=== PATIENT | female | born 1985 | race Caucasian/White ===

== ENCOUNTER 2018-04-21 05:04 | Emergency (ER) | payer SELFPAY ==
[2018-04-21] MEDS ORDERED: ONDANSETRON 4 MG/2 ML VIAL ONE (05:32)
[2018-04-21 06:09] LABS: Absolute Monocytes 2.1 K/uL (0.1-1.3); Absolute Neutrophil 27.5 K/uL (1.8-8.0); Basophils % 0.4 % (0-1.3); Eosinophils % 0.7 % (0-4.4); Hematocrit 52.8 % (36.0-45.0); Lymphocytes % 11.8 % (15.3-44.8); MCV 90.1 fL (80-100); MPV 10.2 fL (7.6-11.3); Monocytes % 6.1 % (3.3-12.3); RBC Red Blood Cell Count 5.85 M/uL (3.86-4.86)
[2018-04-21 06:25] LABS: ALT/SGPT 25 U/L (12-78); AST/SGOT 22 U/L (15-37); Albumin 4.5 g/dL (3.4-5.0); Alkaline Phosphatase 95 U/L (45-117); BUN Blood Urea Nitrogen 13 mg/dL (7-18); Bicarbonate 19 mmol/L (21-32); Bilirubin Direct < 0.1 mg/dL (0-0.2); Bilirubin Total 0.4 mg/dL (0.2-1.0); Glucose Level 153 mg/dL (74-106); Lipase 123 U/L (73-393); Potassium 3.4 mmol/L (3.5-5.1); Protein, Total 8.5 g/dL (6.4-8.2); Sodium Level 139 mmol/L (136-145)
[2018-04-21] MEDS ORDERED: PROMETHAZINE 25 MG/ML VIAL ONE (06:30)
[2018-04-21] MEDS ORDERED: PANTOPRAZOLE 40 MG INJ ONE (06:31)
[2018-04-21] MEDS ORDERED: NA CHLORIDE 0.9% 1,000 ML ONE ×2 (06:31→09:09)
[2018-04-21 06:59] LABS: Blood Morphology Comment NOT SEEN (NOT SEEN); Platelet Estimate ADEQ
[2018-04-21 08:14] LABS: Urine Blood TRACE (NEG); Urine Glucose NEGATIVE (NEG); Urine Protein 1+ (NEG); Urine pH 5.5 (5.0-7.0)
[2018-04-21 08:14] LABS: Urine Amorphous Sediment 1+ /HPF (NONE SEEN); Urine Bacteria 20-50 /HPF (<20); Urine Culture Reflex Order REFLEXED; Urine Mucus HEAVY /HPF (NONE SEEN); Urine RBC NONE SEEN /HPF (NONE SEEN)
[2018-04-21 08:15] LABS: Calcium Oxalate Crystals- Ur FEW (NONE SEEN)
--- NOTE | 2018-04-21 08:24 | RAD REPORT ---
EXAM DESCRIPTION: CTAbdomen Pelvis W Contrast - 04/21/2018 7:27 am CLINICAL HISTORY: Abdominal pain. iv only;Abd pain COMPARISON: No comparisons TECHNIQUE: Biphasic CT imaging of the abdomen and pelvis was performed with 100 ml non-ionic IV cont rast. All CT scans are performed using dose optimization technique as appropriate and may include automated exposure control or mA/KV adjustment according to patient size. FINDINGS: The lung bases are clear. The liver, spleen, pancreas, adrenal glands and left kidney are within normal limits. Punctate nonobs tructing right renal calculus. No bowel obstruction, free air, free fluid or abscess. Fluid-filled colon and small bowel loops noted which could indicate a mild enteritis/colitis. Appendectomy. No evidence of significant lymphadenop athy. No suspicious bony findings. IMPRESSION: A mild enteritis/ colitis pattern is suspected.
[2018-04-21 08:43] LABS: Barbiturates NEGATIVE (NEGATIVE); Benzodiazepines NEGATIVE (NEGATIVE); Cocaine NEGATIVE (NEGATIVE); METHAMPHETAM NEGATIVE (NEGATIVE); Methadone NEGATIVE (NEGATIVE); Opiates NEGATIVE (NEGATIVE); Phencyclidine NEGATIVE (NEGATIVE); THC Cannibis POSITIVE (NEGATIVE)
[2018-04-21] MEDS ORDERED: CIPROFLOXACIN 400mg IV 400 MG/200 ML BAG IV ONE (09:09)
[2018-04-21] MEDS ORDERED: METRONIDAZOLE 500mg IVPB 500 MG/100 ML BAG IV ONE (09:09)
[2018-04-21 10:57] LABS: Hematocrit 42.9 % (36.0-45.0); MCH 31.6 pg (27.0-35.0); MCV 90.5 fL (80-100); MPV 9.1 fL (7.6-11.3); RBC Red Blood Cell Count 4.74 M/uL (3.86-4.86)
--- NOTE | 2018-04-21 11:08 | EDPHYS ---
Physician Documentation [facility] Name: Dalila Jackson Age: 33 yrs Sex: Female : 1985 Arrival Date: 04/21/2018 Time: 05:06 Bed 6 Private MD: ED Physician David Acosta HPI: 04/21 06:42 This 33 yrs old Female presents to ER via Ambulatory with complaints of jr8 Breathing Difficulty, Vomiting. 06:42 The patient presents to the emergency department with nausea, vomiting, diarrhea. jr8 Onset: The symptoms/episode began/occurred acutely, this morning. Possible causes: unknown. The symptoms are aggravated by nothing. The symptoms are alleviated by nothing. Associated signs and symptoms: Pertinent positives: abdominal pain. Severity of symptoms: At their worst the symptoms were moderate in the emergency department the symptoms have improved. The patient has not experienced similar symptoms in the past. The patient has not recently seen a physician. Patient stated that she went to bed fine. Woke up this morning with sudden onset of n/v/d and abdominal cramping . 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 - Social history:: Smoking status: Patient uses tobacco products, smokes one-half pack cigarettes per day, Patient/guardian denies using alcohol, street drugs. - Ebola Screening: : Patient negative for fever greater than or equal to 101.5 degrees Fahrenheit, and additional compatible Ebola Virus Disease symptoms Patient denies exposure to infectious person Patient denies travel to an Ebola-affected area in the 21 days before illness onset. ROS: 06:42 Eyes: Negative for injury, pain, redness, and discharge, ENT: Negative for injury, jr8 pain, and discharge, Neck: Negative for injury, pain, and swelling, Cardiovascular: Negative for chest pain, palpitations, and edema, Respiratory: Negative for shortness of breath, cough, wheezing, and pleuritic chest pain, Back: Negative for injury and pain, MS/Extremity: Negative for injury and deformity, Skin: Negative for injury, rash, and discoloration, Neuro: Negative for headache, weakness, numbness, tingling, and seizure. 06:42 Abdomen/GI: Positive for abdominal pain, nausea, vomiting, and diarrhea, abdominal cramps. Exam: 06:42 Eyes: Pupils equal round and reactive to light, extra-ocular motions intact. Lids and jr8 lashes normal. Conjunctiva and sclera are non-icteric and not injected. Cornea within normal limits. Periorbital areas with no swelling, redness, or edema. ENT: Nares patent. No nasal discharge, no septal abnormalities noted. Tympanic membranes are normal and external auditory canals are clear. Oropharynx with no redness, swelling, or masses, exudates, or evidence of obstruction, uvula midline. Mucous membranes moist. Neck: Trachea midline, no thyromegaly or masses palpated, and no cervical lymphadenopathy. Supple, full range of motion without nuchal rigidity, or vertebral point tenderness. No Meningismus. Cardiovascular: Regular rate and rhythm with a normal S1 and S2. No gallops, murmurs, or rubs. Normal PMI, no JVD. No pulse deficits. Respiratory: Lungs have equal breath sounds bilaterally, clear to auscultation and percussion. No rales, rhonchi or wheezes noted. No increased work of breathing, no retractions or nasal flaring. Abdomen/GI: Soft, non-tender, with normal bowel sounds. No distension or tympany. No guarding or rebound. No evidence of tenderness throughout. Back: No spinal tenderness. No costovertebral tenderness. Full range of motion. Skin: Warm, dry with normal turgor. Normal color with no rashes, no lesions, and no evidence of cellulitis. MS/ Extremity: Pulses equal, no cyanosis. Neurovascular intact. Full, normal range of motion. Neuro: Awake and alert, GCS 15, oriented to person, place, time, and situation. Cranial nerves II-XII grossly intact. Motor strength 5/5 in all extremities. Sensory grossly intact. Cerebellar exam normal. Normal gait. Vital Signs: 05:21 BP 118 / 101; Pulse 88; Resp 24; Temp 97.5; Pulse Ox 95% on R/A; Weight 70.31 kg; ao Height 5 ft. 5 in. (165.10 cm); Pain 6/10; 06:00 BP 125 / 90; Pulse 90; Resp 18; Pulse Ox 99% on 2 lpm NC; rr5 06:41 BP 112 / 80; Pulse 80; Resp 18; Pulse Ox 98% on R/A; ea 07:58 BP 124 / 92; Pulse 77; Resp 18 S; Pulse Ox 98% on 2 lpm NC; Pain 0/10; jl7 09:00 BP 114 / 80; Pulse 78; Resp 16; Pulse Ox 99% ; bp 10:00 BP 105 / 67; Pulse 75; Resp 16; Pulse Ox 98% ; bp 11:36 BP 107 / 69; Pulse 81; Resp 16; Pulse Ox 98% ; bp 05:21 Body Mass Index 25.79 (70.31 kg, 165.10 cm) ao MDM: 05:18 Patient medically screened. tw4 : Data reviewed: vital signs, nurses notes, lab test result(s), radiologic studies, CT jr8 scan, and as a result, I will discharge patient. Data interpreted: Pulse oximetry: on room air is 98 %. Interpretation: normal. 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 Response to treatment: the patient's symptoms have markedly improved after treatment, patient is well hydrated. ED course: Patient with benign feeling abdomen. Has been reassessed multiple times without acute finding. WBC markedly decreased after fluids administered. Patient without any vomiting at this time and wants to go home. Will treat with antibiotics and to f/u with GI and PCP. To come back if worse. Patient is good with this plan . 04/21 05:23 Order name: Basic Metabolic Panel tw4 04/21 05:23 Order name: CBC with Diff tw4 04/21 05:23 Order name: Creatinine for Radiology; Complete Time: 06:35 tw4 04/21 05:23 Order name: Hepatic Function; Complete Time: 06:35 tw4 04/21 05:23 Order name: Lipase; Complete Time: 06:35 tw4 04/21 05:23 Order name: Urine Drug Screen; Complete Time: 08:58 tw4 04/21 05:23 Order name: Urine Microscopic Only; Complete Time: 08:27 tw4 04/21 05:23 Order name: Basic Metabolic Panel; Complete Time: 06:35 EDMS 04/21 05:23 Order name: CBC with Automated Diff; Complete Time: 07:22 EDMS 04/21 06:17 Order name: Manual Differential; Complete Time: 07:22 EDMS 04/21 07:34 Order name: Urine Dipstick--Ancillary (enter results); Complete Time: 08:27 eb 04/21 07:34 Order name: Urine --Ancillary (enter results); Complete Time: 08:27 eb 04/21 08:19 Order name: Urine Culture [facility] 04/21 10:15 Order name: CBC w/o diff; Complete Time: 11:05 jr8 04/21 05:23 Order name: IV Saline Lock; Complete Time: 05:30 tw4 04/21 05:23 Order name: Labs collected and sent; Complete Time: 05:37 tw4 04/21 05:23 Order name: Urine Test (obtain specimen); Complete Time: 07:20 tw4 04/21 05:23 Order name: Urine Dipstick-Ancillary (obtain specimen); Complete Time: 07:20 tw4 04/21 06:17 Order name: CT Abd/Pelvis - W/Contrast; Complete Time: 08:27 jr8 Administered Medications: 05:30 Drug: Zofran 4 mg Route: IVP; Site: right antecubital; ea 07:02 Follow up: Response: No adverse reaction rr5 06:25 Drug: Promethazine 12.5 mg Route: IVP; Site: right antecubital; rr5 07:02 Follow up: Response: No adverse reaction rr5 06:30 Drug: ProTONIX 40 mg Route: IVP; Site: right antecubital; rr5 07:01 Follow up: Response: No adverse reaction rr5 06:31 Drug: NS 0.9% 1000 ml Route: IV; Rate: 1000 ml; Site: right antecubital; rr5 08:30 Follow up: IV Status: Completed infusion; IV Intake: 1000ml bp 09:00 Drug: Flagyl 500 mg Volume: 100 ml; Route: IVPB; Rate: 200 ml/hr; Infused Over: 30 bp mins; Site: right antecubital; 09:30 Follow up: IV Status: Completed infusion; IV Intake: 100ml bp 09:00 Drug: NS 0.9% 1000 ml Route: IV; Rate: 1000 ml; Site: right antecubital; bp 11:37 Follow up: IV Status: Completed infusion; IV Intake: 1000ml bp 09:30 Drug: Ciprofloxacin 400 mg Volume: 200 ml; Route: IVPB; Infused Over: 60 mins; Site: bp right antecubital; 10:30 Follow up: IV Status: Completed infusion; IV Intake: 200ml bp Disposition: 04/21/18 11:07 Discharged to Home. Impression: Abdominal and pelvic pain, Nausea and vomiting, Enteritis/Colitis. - Condition is Stable. - Discharge Instructions: Abdominal Pain, Adult, Nausea and Vomiting, Adult. - Prescriptions for Flagyl 500 mg Oral Tablet - take 1 tablet by ORAL route every 6 hours for 10 days; 40 tablet. Cipro 500 mg Oral Tablet - take 1 tablet by ORAL route every 12 hours for 10 days; 20 tablet. promethazine 25 mg Oral Tablet - take 1 tablet by ORAL route every 6 hours As needed; 20 tablet. - Medication Reconciliation Form, Thank You Letter, Antibiotic Education, Prescription Opioid Use form. - Follow up: Private Physician; When: 5 - 6 days; Reason: Recheck today's complaints, Continuance of care, Re-evaluation by your physician. - Problem is new. - Symptoms have improved. Signatures: Dispatcher [employer] EDMS Robert Bergman PA PA jr8 Joe Perez RN RN ao Antunez, Elena RN Remberto Pittman ea, RN RN bp Wadley, Terrence, MD MD tw4 Jonh Strange, HOMA RN rr5 Corrections: (The following items were deleted from the chart) 11:42 11:07 04/21/2018 11:07 Discharged to Home. Impression: Abdominal and pelvic pain; bp Nausea and vomiting; Enteritis/Colitis. Condition is Stable. Forms are Medication Reconciliation Form, Thank You Letter, Antibiotic Education, Prescription Opioid Use. Follow up: Private Physician; When: 5 - 6 days; Reason: Recheck today's complaints, Continuance of care, Re-evaluation by your physician. Problem is new. Symptoms have improved. jr8
--- NOTE | 2018-04-21 11:08 | ER ---
Nurse's Notes [facility] Name: Adrianna Jackson Age: 33 yrs Sex: Female : 1985 Arrival Date: 04/21/2018 Time: 05:06 Bed 6 Private MD: Diagnosis: Abdominal and pelvic pain;Nausea and vomiting;Enteritis/Colitis Presentation: 04/21 05:16 Presenting complaint: Patient states: Vomiting and diarrhea x 3 hours. Patient also ao complains of abdominal pain and SOB starting the same time. Transition of care: patient was not received from another setting of care. Onset of symptoms was April 21, 2018 at 02:00. Risk Assessment: Do you want to hurt yourself or someone else? Patient reports no desire to harm self or others. Initial Sepsis Screen: Does the patient meet any 2 criteria? RR > 20 per min. No. Patient's initial sepsis screen is negative. Does the patient have a suspected source of infection? No. Patient's initial sepsis screen is negative. Care prior to arrival: None. 05:16 Method Of Arrival: Ambulatory ao 05:16 Acuity: XAVIER 3 ao Triage Assessment: 08:30 Respiratory: Reports shortness of breath Onset: The symptoms/episode began/occurred bp this morning, 08:30 General: Appears in no apparent distress. comfortable, Behavior is calm, cooperative, bp appropriate for age. 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 - Social history:: Smoking status: Patient uses tobacco products, smokes one-half pack cigarettes per day, Patient/guardian denies using alcohol, street drugs. - Ebola Screening: : Patient negative for fever greater than or equal to 101.5 degrees Fahrenheit, and additional compatible Ebola Virus Disease symptoms Patient denies exposure to infectious person Patient denies travel to an Ebola-affected area in the 21 days before illness onset. Screenin:23 Abuse screen: Denies threats or abuse. Denies injuries from another. Nutritional ao screening: No deficits noted. Tuberculosis screening: No symptoms or risk factors identified. Fall Risk None identified. Assessment: 05:24 Respiratory: Airway. ao 05:35 General: Appears uncomfortable, Behavior is calm, cooperative, appropriate for age. ea Pain: Complains of pain in right upper quadrant, left upper quadrant, right lower quadrant and left lower quadrant Pain currently is 9 out of 10 on a pain scale. Neuro: Level of Consciousness is awake, alert, obeys commands, Oriented to person, place, time, situation. Cardiovascular: Heart tones S1 S2 present Patient's skin is warm and dry. Respiratory: Airway is patent Respiratory effort is even, unlabored, Breath sounds are clear bilaterally. GI: Abdomen is non-distended, Bowel sounds present X 4 quads. Abd is soft X 4 quads Abdomen is tender to palpation X 4 quads. Derm: Skin is pink, warm \T\ dry. 06:39 Reassessment: Patient and/or family updated on plan of care and expected duration. Pain ea level reassessed. Patient is alert, oriented x 3, equal unlabored respirations, skin warm/dry/pink. 06:50 Reassessment: unable to give urine sample for the test. rr5 06:50 Cardiovascular: Rhythm is regular. rr5 07:59 General: Appears in no apparent distress. uncomfortable, Behavior is calm, cooperative, jl7 appropriate for age. Pain: Denies pain. Neuro: Level of Consciousness is awake, alert, obeys commands, Oriented to person, place, time, situation. Cardiovascular: Heart tones S1 S2 present Patient's skin is warm and dry. Respiratory: Airway is patent Respiratory effort is even, unlabored, Respiratory pattern is regular, symmetrical, Breath sounds are clear bilaterally. GI: Patient currently denies nausea. Derm: Skin is pink, warm \T\ dry. 08:30 Reassessment: RECD REPORT FROM MEGHAN LUTHER. 33YO WF P/W N/V/D x3 HR. ALL CURRENT STUDIES bp COMPLETED. CBC TO BE REPEATED AFTER ABX AND IVF. VS STABLE ON MONITOR. 09:48 Reassessment: ABX AND IVF INFUSING, VS REMAIN STABLE. bp 11:35 Reassessment: PT D/C HOME AMBULATORY WITH FAMILY, DX WITH ENTERITIS. bp Vital Signs: 05:21 BP 118 / 101; Pulse 88; Resp 24; Temp 97.5; Pulse Ox 95% on R/A; Weight 70.31 kg; ao Height 5 ft. 5 in. (165.10 cm); Pain 6/10; 06:00 BP 125 / 90; Pulse 90; Resp 18; Pulse Ox 99% on 2 lpm NC; rr5 06:41 BP 112 / 80; Pulse 80; Resp 18; Pulse Ox 98% on R/A; ea 07:58 BP 124 / 92; Pulse 77; Resp 18 S; Pulse Ox 98% on 2 lpm NC; Pain 0/10; jl7 09:00 BP 114 / 80; Pulse 78; Resp 16; Pulse Ox 99% ; bp 10:00 BP 105 / 67; Pulse 75; Resp 16; Pulse Ox 98% ; bp 11:36 BP 107 / 69; Pulse 81; Resp 16; Pulse Ox 98% ; bp 05:21 Body Mass Index 25.79 (70.31 kg, 165.10 cm) ao ED Course: 05:06 Patient arrived in ED. es 05:18 David Loaiza MD is Attending Physician. tw4 05:19 Triage completed. ao 05:20 Inserted saline lock: 20 gauge in right antecubital area, using aseptic technique. ea Blood collected. 05:22 Arm band placed on right wrist. Patient placed in an exam room, on a stretcher, on ao oxygen, on pulse oximetry, Patient notified of wait time. 05:24 Patient has correct armband on for positive identification. Pulse ox on. NIBP on. ao 05:35 Jaclyn Birch RN is Primary Nurse. ea 06:09 Robert Bergman PA is PHCP. jr8 06:09 David Loaiza MD is Attending Physician. jr8 06:17 Notified Nurse Practitioner and/or Physician Adoption Social Worker of a critical lab result(s), bb WBCs 34.0 Robert FORD notified. 07:10 Report given to marissa LUTHER. rr5 07:26 CT completed. Patient tolerated procedure well. Patient moved to CT via wheelchair. nj Patient moved back from CT. 07:27 CT Abd/Pelvis - W/Contrast In Process Unspecified. EDMS 07:30 Urine collected: clean catch specimen, adrianna colored. jl7 07:58 Primary Nurse role handed off by Jaclyn Birch RN jl7 07:58 Lu, Jahala, RN is Primary Nurse. jl7 08:53 Primary Nurse role handed off by Meghan Lu, HOMA bp 08:53 Remberto Brady, HOMA is Primary Nurse. bp 11:35 No provider procedures requiring assistance completed. IV discontinued, intact, bp bleeding controlled, No redness/swelling at site. Pressure dressing applied. Administered Medications: 05:30 Drug: Zofran 4 mg Route: IVP; Site: right antecubital; ea 07:02 Follow up: Response: No adverse reaction rr5 06:25 Drug: Promethazine 12.5 mg Route: IVP; Site: right antecubital; rr5 07:02 Follow up: Response: No adverse reaction rr5 06:30 Drug: ProTONIX 40 mg Route: IVP; Site: right antecubital; rr5 07:01 Follow up: Response: No adverse reaction rr5 06:31 Drug: NS 0.9% 1000 ml Route: IV; Rate: 1000 ml; Site: right antecubital; rr5 08:30 Follow up: IV Status: Completed infusion; IV Intake: 1000ml bp 09:00 Drug: Flagyl 500 mg Volume: 100 ml; Route: IVPB; Rate: 200 ml/hr; Infused Over: 30 bp mins; Site: right antecubital; 09:30 Follow up: IV Status: Completed infusion; IV Intake: 100ml bp 09:00 Drug: NS 0.9% 1000 ml Route: IV; Rate: 1000 ml; Site: right antecubital; bp 11:37 Follow up: IV Status: Completed infusion; IV Intake: 1000ml bp 09:30 Drug: Ciprofloxacin 400 mg Volume: 200 ml; Route: IVPB; Infused Over: 60 mins; Site: bp right antecubital; 10:30 Follow up: IV Status: Completed infusion; IV Intake: 200ml bp Intake: 08:30 IV: 1000ml; Total: 1000ml. bp 09:30 IV: 100ml; Total: 1100ml. bp 10:30 IV: 200ml; Total: 1300ml. bp 11:37 IV: 1000ml; Total: 2300ml. bp 05:32 bright red in color stool, patient claimed.dr. loaiza aware rr5 06:20 vomitted with blood Robert FORD informed with order and carried out rr5 Output: 05:32 Stool: 1 (Loose Stool) ; Total: 0ml. rr5 06:20 Gastric: 1ml (Emesis); Total: 1ml. rr5 05:32 bright red in color stool, patient claimed.dr. loaiza aware rr5 06:20 vomitted with blood Robert FORD informed with order and carried out rr5 Outcome: 11:07 Discharge ordered by . oli 11:36 Discharged to home ambulatory, with family. bp 11:36 Condition: stable 11:36 Discharge instructions given to patient, Instructed on discharge instructions, follow up and referral plans. medication usage, Demonstrated understanding of instructions, follow-up care, medications, Prescriptions given X 3. 11:42 Patient left the ED. bp Signatures: Dispatcher [employer] EDMS Elisabet Kellogg Brenda, RN RN Robert Valladares PA PA jr8 Joe Perez, RN RN Mike Bashir Jahala RN RN jl7 Jaclyn Birch RN Remberto Pittman ea RN RN David Vela MD MD tw4 Jonh Strange RN RN rr5 Corrections: (The following items were deleted from the chart) 05:32 05:29 Reassessment: rr5 rr5
== END 2018-04-21 11:42 | disposition home or self-care (01) ==
LOC: ER 05:04
DX: K52.9 Noninfective gastroenteritis and colitis, unspecified (principal); R10.2 Pelvic and perineal pain; F17.210 Nicotine dependence, cigarettes, uncomplicated; F32.9 Major depressive disorder, single episode, unspecified; Z88.0 Allergy status to penicillin
CPT/HCPCS: 36415; 74177; 80048; 80076; 80307; 81003; 81015; 81025; 83690; 85025; 85027; 87086; 87088; 96361; 96365; 96367; 96375; 99285; C9113; J0744; J2405; J2550; J7030; Q9967

== ENCOUNTER 2018-05-04 05:34 | Emergency (ER) | payer SELFPAY ==
[2018-05-04] MEDS ORDERED: NA CHLORIDE 0.9% 1,000 ML ONE (06:27)
[2018-05-04] MEDS ORDERED: KETOROLAC 30 MG/ML INJ ONE (06:27)
[2018-05-04 06:49] LABS: Absolute Lymphocytes (CBC) 2.3 K/uL (0.7-4.9); Absolute Monocytes 1.1 K/uL (0.1-1.3); Absolute Neutrophil 12.3 K/uL (1.8-8.0); Basophils % 0.3 % (0-1.3); Eosinophils % 1.4 % (0-4.4); Hematocrit 43.1 % (36.0-45.0); Lymphocytes % 14.4 % (15.3-44.8); MCH 31.2 pg (27.0-35.0); MPV 9.4 fL (7.6-11.3); Monocytes % 6.6 % (3.3-12.3); RBC Red Blood Cell Count 4.69 M/uL (3.86-4.86)
[2018-05-04 07:08] LABS: Urine Blood 1+ (NEG); Urine Glucose NEGATIVE (NEG); Urine Protein NEGATIVE (NEG); Urine Specific Gravity >1.030 (1.005-1.030); Urine pH 5.5 (5.0-7.0)
[2018-05-04 07:16] LABS: ALT/SGPT 22 U/L (12-78); AST/SGOT 10 U/L (15-37); Albumin 3.3 g/dL (3.4-5.0); Alkaline Phosphatase 70 U/L (45-117); BUN Blood Urea Nitrogen 12 mg/dL (7-18); Bicarbonate 22 mmol/L (21-32); Bilirubin Direct < 0.1 mg/dL (0-0.2); Bilirubin Total 0.3 mg/dL (0.2-1.0); Glucose Level 118 mg/dL (74-106); Lipase 107 U/L (73-393); Potassium 3.4 mmol/L (3.5-5.1); Protein, Total 6.2 g/dL (6.4-8.2); Sodium Level 141 mmol/L (136-145)
[2018-05-04 07:49] LABS: Blood Morphology Comment NOT SEEN (NOT SEEN); Platelet Estimate ADEQ; Urine White Blood Cell Casts OK
--- NOTE | 2018-05-04 08:03 | RAD REPORT ---
EXAM DESCRIPTION: CT - Abdomen Pelvis W Contrast - 05/04/2018 7:44 am CLINICAL HISTORY: Abdominal pain CT April 21 COMPARISON: None. TECHNIQUE: Biphasic, helical CT imaging of the abdomen and pelvis was performed following 100 ml non -ionic IV contrast. No oral contrast administered. All CT scans are performed using dose optimization technique as appropriate and may include automated exposure control or mA/KV adjustment according to patient size. FINDINGS: No suspicious findings in the lung bases. The liver, spleen, and pancreas show no suspicious findings. Gallbladder is tightly contracted. Galls tones can be occult on CT imaging. Contracted state of the gallbladder accentuates wall thickness. No biliary tree dilatation. Symmetric renal function is seen with no hydronephrosis or suspicious renal mass. There is slight het erogeneity of the parenchymal enhancement pattern. Pyelonephritis would not be suspected without supp orting clinical or laboratory findings. No urinary bladder wall thickening or focal abnormality. No a drenal abnormality. Uterus and ovaries show no suspicious findings. No gastric dilatation or wall thickening. Proximal small bowel loops are mildly prominent. Distal sma ll bowel loops are unremarkable. No acute colon process. No appendicitis findings. A few small mesent miryam lymph nodes are present. No free air, free fluid or inflammatory stranding. No hernia, mass or bulky lymphadenopathy. No suspicious bony findings. IMPRESSION: Mild prominence of the proximal small bowel loops. A few small mesenteric lymph nodes ar e present. Patient may have a mild enteritis. Findings are less pronounced than seen on the April 21 study. Slight heterogeneity of the renal parenchymal enhancement pattern is unlikely to be pyelonephritis. N o acute or MATHEMATICIAN RESEARCH process seen.
--- NOTE | 2018-05-04 08:19 | ER ---
Nurse's Notes [facility] Name: Dalila Jackson Age: 33 yrs Sex: Female : 1985 Arrival Date: 05/04/2018 Time: 05:37 Bed 5 Private MD: Diagnosis: Generalized abdominal pain Presentation: 05/04 05:35 Presenting complaint: Patient states: that she is having severe abd pain, nausea and fc diarrhea. Was here on Thanksgiving with colitis. Transition of care: patient was not received from another setting of care. Onset of symptoms was May 04, 2018 at 04:00. Risk Assessment: Do you want to hurt yourself or someone else? Patient reports no desire to harm self or others. Initial Sepsis Screen: Does the patient meet any 2 criteria? No. Patient's initial sepsis screen is negative. Does the patient have a suspected source of infection? No. Patient's initial sepsis screen is negative. Care prior to arrival: None. 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 - Social history:: Smoking status: Patient uses tobacco products, smokes one-half pack cigarettes per day, Patient uses alcohol, occasionally. Patient/guardian denies using street drugs. - Ebola Screening: : Patient negative for fever greater than or equal to 101.5 degrees Fahrenheit, and additional compatible Ebola Virus Disease symptoms Patient denies exposure to infectious person Patient denies travel to an Ebola-affected area in the 21 days before illness onset. Screenin:51 Abuse screen: Denies threats or abuse. Nutritional screening: No deficits noted. fc Tuberculosis screening: No symptoms or risk factors identified. Fall Risk None identified. Assessment: 06:27 General: Appears uncomfortable, Behavior is cooperative, anxious. Pain: Complains of bb pain in abdomen Pain currently is 10 out of 10 on a pain scale. Neuro: Level of Consciousness is awake, alert, obeys commands, Oriented to person, place, time, situation. Cardiovascular: Heart tones S1 S2 present Capillary refill < 3 seconds Patient's skin is warm and dry. Pulses are all present. Edema is absent. Respiratory: Respiratory effort is unlabored, Respiratory pattern is hyperventilation Breath sounds are clear bilaterally. GI: Bowel sounds hyperactive in right upper quadrant, left upper quadrant, right lower quadrant and left lower quadrant Abd is soft X 4 quads Abdomen is tender to palpation in right upper quadrant Reports diarrhea, nausea, vomiting. : No signs and/or symptoms were reported regarding the genitourinary system. Derm: Skin is pink, warm \T\ dry. Musculoskeletal: Circulation, motion, and sensation intact. 06:57 Reassessment: Patient and/or family updated on plan of care and expected duration. Pain bb level reassessed. Patient is alert, oriented x 3, equal unlabored respirations, skin warm/dry/pink. pain has improved now 4/10 Patient states feeling better. 07:13 Reassessment: Patient appears in no apparent distress at this time. Patient and/or hb family updated on plan of care and expected duration. Pain level reassessed. Patient is alert, oriented x 3, equal unlabored respirations, skin warm/dry/pink. Vital Signs: 05:35 BP 135 / 78; Pulse 62; Resp 18; Temp 97.5(O); Pulse Ox 100% on R/A; Weight 72.57 kg fc (R); Height 5 ft. 5 in. (165.10 cm) (R); Pain 10/10; 06:58 BP 97 / 56; Pulse 88; Resp 16 S; Pulse Ox 99% on R/A; Pain 4/10; bb 05:35 Body Mass Index 26.63 (72.57 kg, 165.10 cm) fc 06:58 pt lying on right side with blood pressure cuff on left arm bb ED Course: 05:35 Arm band placed on Patient placed in an exam room, on a stretcher. fc 05:37 Patient arrived in ED. es 05:50 Triage completed. fc 05:51 Patient has correct armband on for positive identification. Placed in gown. Bed in low fc position. Call light in reach. 05:51 No provider procedures requiring assistance completed. fc 05:53 Anna Felix FNP-C is PHCP. kb 05:53 Elmer Bacon MD is Attending Physician. kb 06:15 Initial lab(s) drawn, by me, sent to lab. Inserted saline lock: 20 gauge in right bb antecubital area, using aseptic technique. Blood collected. 07:13 Lexus Villarreal, RN is Primary Nurse. hb 07:43 CT completed. Patient tolerated procedure well. Patient moved to CT via wheelchair. Patient moved back from CT. 07:44 CT Abd/Pelvis - W/Contrast In Process Unspecified. EDMS 08:45 IV discontinued, intact, bleeding controlled, No redness/swelling at site. Pressure hb dressing applied. Administered Medications: 06:26 Drug: NS 0.9% 1000 ml Route: IV; Rate: 1000 ml; Site: right antecubital; bb 06:26 Drug: TORadol 30 mg Route: IVP; Site: right antecubital; bb 06:58 Follow up: Response: Pain is decreased bb Outcome: 08:17 Discharge ordered by MD. kb 08:45 Discharged to home ambulatory. hb 08:45 Condition: stable 08:45 Discharge instructions given to patient, Instructed on discharge instructions, follow up and referral plans. medication usage, Demonstrated understanding of instructions, follow-up care, medications, Prescriptions given X 2. 08:47 Patient left the ED. hb Signatures: Dispatcher [employer] EDAnna Ibarra, PREET CLOUD SOFTWARE ENGINEER-Elisabet Oliver Susan sj Chretien, Felicia, RN RN fc Ballard, Brenda, RN RN bb Baxter, Heather, RN RN hb
--- NOTE | 2018-05-04 08:19 | EDPHYS ---
Physician Documentation [facility] Name: Dalila Jackson Age: 33 yrs Sex: Female : 1985 Arrival Date: 05/04/2018 Time: 05:37 Bed 5 Private MD: ED Physician Elmer Bacon HPI: 05/04 05:57 This 33 yrs old Female presents to ER via Wheelchair with complaints of kb Abdominal Pain. 05:57 The patient presents with abdominal pain that is diffuse. Onset: The symptoms/episode kb began/occurred this morning, at 03:30. The symptoms do not radiate. Associated signs and symptoms: Pertinent positives: diarrhea, Pertinent negatives: nausea and vomiting, anorexia. The symptoms are described as constant. Modifying factors: The symptoms are alleviated by nothing, the symptoms are aggravated by pressure. Severity of pain: At its worst the pain was moderate in the emergency department the pain is unchanged. The patient has not experienced similar symptoms in the past, but family has similar symptoms, significant other. The patient has been recently seen at the [facility] Emergency Department, a couple of weeks ago. Pt reports abdominal pain and diarrhea that started at 0330. Significant other reports he had abd pain yesterday as well. Denies fever, nausea and vomiting. . 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 - Social history:: Smoking status: Patient uses tobacco products, smokes one-half pack cigarettes per day, Patient uses alcohol, occasionally. Patient/guardian denies using street drugs. - Ebola Screening: : Patient negative for fever greater than or equal to 101.5 degrees Fahrenheit, and additional compatible Ebola Virus Disease symptoms Patient denies exposure to infectious person Patient denies travel to an Ebola-affected area in the 21 days before illness onset. ROS: 06:02 Constitutional: Negative for fever, chills, and weight loss, Cardiovascular: Negative kb for chest pain, palpitations, and edema, Respiratory: Negative for shortness of breath, cough, wheezing, and pleuritic chest pain, Back: Negative for injury and pain, : Negative for injury, bleeding, discharge, and swelling, MS/Extremity: Negative for injury and deformity, Skin: Negative for injury, rash, and discoloration, Neuro: Negative for headache, weakness, numbness, tingling, and seizure. 06:02 Abdomen/GI: Positive for abdominal pain, diarrhea, Negative for nausea and vomiting, constipation, abdominal cramps, abdominal distension, anorexia. Exam: 06:02 Constitutional: This is a well developed, well nourished patient who is awake, alert, kb and in no acute distress. Head/Face: Normocephalic, atraumatic. Chest/axilla: Normal chest wall appearance and motion. Nontender with no deformity. No lesions are appreciated. Cardiovascular: Regular rate and rhythm with a normal S1 and S2. No gallops, murmurs, or rubs. Normal PMI, no JVD. No pulse deficits. Respiratory: Lungs have equal breath sounds bilaterally, clear to auscultation and percussion. No rales, rhonchi or wheezes noted. No increased work of breathing, no retractions or nasal flaring. Back: No spinal tenderness. No costovertebral tenderness. Full range of motion. Skin: Warm, dry with normal turgor. Normal color with no rashes, no lesions, and no evidence of cellulitis. MS/ Extremity: Pulses equal, no cyanosis. Neurovascular intact. Full, normal range of motion. Neuro: Awake and alert, GCS 15, oriented to person, place, time, and situation. Cranial nerves II-XII grossly intact. Motor strength 5/5 in all extremities. Sensory grossly intact. Cerebellar exam normal. Normal gait. 06:02 Abdomen/GI: Inspection: abdomen appears normal, Bowel sounds: normal, in all quadrants, Palpation: soft, in all quadrants, mild abdominal tenderness, in all quadrants, moderate abdominal tenderness. Vital Signs: 05:35 BP 135 / 78; Pulse 62; Resp 18; Temp 97.5(O); Pulse Ox 100% on R/A; Weight 72.57 kg fc (R); Height 5 ft. 5 in. (165.10 cm) (R); Pain 10/10; 06:58 BP 97 / 56; Pulse 88; Resp 16 S; Pulse Ox 99% on R/A; Pain 4/10; bb 05:35 Body Mass Index 26.63 (72.57 kg, 165.10 cm) fc 06:58 pt lying on right side with blood pressure cuff on left arm bb MDM: 05:53 Patient medically screened. kb 06:02 Data reviewed: vital signs, nurses notes. Data interpreted: Pulse oximetry: on room air kb is 100 %. Interpretation: normal. 08:17 Counseling: I had a detailed discussion with the patient and/or guardian regarding: the kb historical points, exam findings, and any diagnostic results supporting the discharge/admit diagnosis, lab results, radiology results, the need for outpatient follow up, a family practitioner, a test worker, to return to the emergency department if symptoms worsen or persist or if there are any questions or concerns that arise at home. 05/04 05:48 Order name: Urine Dipstick--Ancillary (enter results); Complete Time: 07:10 ms 05/04 05:48 Order name: Urine --Ancillary (enter results); Complete Time: 07:10 ms 05/04 05:57 Order name: Basic Metabolic Panel; Complete Time: 07:22 kb 05/04 05:57 Order name: CBC with Diff; Complete Time: 07:49 kb 05/04 05:57 Order name: Hepatic Function; Complete Time: 07:22 kb 05/04 05:57 Order name: Lipase; Complete Time: 07:22 kb 05/04 05:57 Order name: IV Saline Lock; Complete Time: 06:27 kb 05/04 05:57 Order name: Labs collected and sent; Complete Time: 06:27 kb 05/04 07:11 Order name: CT Abd/Pelvis - W/Contrast; Complete Time: 08:09 kb 05/04 07:49 Order name: CBC Smear Scan; Complete Time: 07:49 EDMS Administered Medications: 06:26 Drug: NS 0.9% 1000 ml Route: IV; Rate: 1000 ml; Site: right antecubital; bb 06:26 Drug: TORadol 30 mg Route: IVP; Site: right antecubital; bb 06:58 Follow up: Response: Pain is decreased bb Disposition: 05/04/18 08:17 Discharged to Home. Impression: Generalized abdominal pain. - Condition is Stable. - Discharge Instructions: Abdominal Pain, Adult, [id number]. - Prescriptions for Bentyl 20 mg Oral Tablet - take 1 tablet by ORAL route every 6 hours As needed; 20 tablet. Zofran 4 mg Oral Tablet - take 1 tablet by ORAL route every 6 hours As needed; 20 tablet. - Medication Reconciliation Form, Thank You Letter, Antibiotic Education, Prescription Opioid Use, SBAR form, Work release form form. - Follow up: Emergency Department; When: As needed; Reason: Worsening of condition. Follow up: Private Physician; When: 2 - 3 days; Reason: Recheck today's complaints, Continuance of care, Re-evaluation by your physician. Signatures: Dispatcher [employer] EDMS Anna Felix, ITZ-C SOFTWARE SALES EXECUTIVE-Carlita Melvin RN RN Antonella Campuzano RN RN Lexus Solomon RN RN Corrections: (The following items were deleted from the chart) 08:47 08:17 05/04/2018 08:17 Discharged to Home. Impression: Generalized abdominal pain. hb Condition is Stable. Forms are SBAR form, Medication Reconciliation Form, Thank You Letter, Antibiotic Education, Prescription Opioid Use. Follow up: Emergency Department; When: As needed; Reason: Worsening of condition. Follow up: Private Physician; When: 2 - 3 days; Reason: Recheck today's complaints, Continuance of care, Re-evaluation by your physician. kb
== END 2018-05-04 08:47 | disposition home or self-care (01) ==
LOC: ER 05:34
DX: R10.84 Generalized abdominal pain (principal); R19.7 Diarrhea, unspecified; F17.210 Nicotine dependence, cigarettes, uncomplicated; F32.9 Major depressive disorder, single episode, unspecified; Z88.0 Allergy status to penicillin
CPT/HCPCS: 36415; 74177; 80048; 80076; 81003; 81025; 83690; 85025; J7030; Q9967

== ENCOUNTER 2019-05-08 09:35 | Emergency (ER) | payer SELFPAY ==
[2019-05-08] MEDS ORDERED: MEPERIDINE HCL 25 MG/0.5 ML ONE (10:28)
[2019-05-08] MEDS ORDERED: NA CHLORIDE 0.9% 1,000 ML ONE ×2 (10:28→12:42)
[2019-05-08] MEDS ORDERED: ONDANSETRON 4 MG/2 ML VIAL ONE (10:28)
[2019-05-08 10:35] LABS: Absolute Lymphocytes (CBC) 1.3 K/uL (0.7-4.9); Basophils % 0.5 % (0-1.3); Hematocrit 50.6 % (36.0-45.0); Lymphocytes % 6.2 % (15.3-44.8); MPV 9.4 fL (7.6-11.3); RBC Red Blood Cell Count 5.59 M/uL (3.86-4.86)
[2019-05-08 10:52] LABS: Albumin 4.3 g/dL (3.4-5.0); Bilirubin Direct 0.1 mg/dL (0-0.2); Bilirubin Total 0.5 mg/dL (0.2-1.0); Protein, Total 7.8 g/dL (6.4-8.2)
[2019-05-08 11:36] LABS: Urine Bacteria <20 /HPF (<20); Urine Culture Reflex Order REFLEXED; Urine RBC NONE SEEN /HPF (NONE SEEN)
--- NOTE | 2019-05-08 11:48 | RAD REPORT ---
EXAM DESCRIPTION: CTAbdomen Pelvis W Contrast - 05/08/2019 11:36 am CLINICAL HISTORY: Abdominal pain. ABD PAIN COMPARISON: Abdomen Pelvis W Contrast dated 05/04/2018; Abdomen Pelvis W Contrast dated 8 TECHNIQUE: Biphasic CT imaging of the abdomen and pelvis was performed with 100 ml non-ionic IV cont rast. All CT scans are performed using dose optimization technique as appropriate and may include automated exposure control or mA/KV adjustment according to patient size. FINDINGS: The lung bases are clear. The liver, spleen, pancreas, adrenal glands and kidneys are within normal limits. No bowel obstruction, free air, free fluid or abscess. The appendix is normal. No evidence of signi ficant lymphadenopathy. No suspicious bony findings. IMPRESSION: No acute intra-abdominal or pelvic finding.
[2019-05-08] MEDS ORDERED: Levofloxacin500mg IV 500 MG/100 ML BAG IV ONE (12:42)
[2019-05-08] MEDS ORDERED: METRONIDAZOLE 500mg IVPB 500 MG/100 ML BAG IV ONE (12:43)
[2019-05-08 12:48] LABS: Blood Morphology Comment NOT SEEN (NOT SEEN); Platelet Estimate ADEQ
--- NOTE | 2019-05-08 13:17 | ER ---
Nurse's Notes [facility] Name: Dalila Jackson Age: 34 yrs Sex: Female : 1985 Arrival Date: 05/08/2019 Time: 09:37 Bed 7 Private MD: Diagnosis: Diarrhea, unspecified;Dehydration;Generalized abdominal pain Presentation: 05/08 10:09 Presenting complaint: N/V/D with blood streaks and abdominal cramping x 2 hrs. hb Transition of care: patient was not received from another setting of care. Onset of symptoms was May 08, 2019. Risk Assessment: Do you want to hurt yourself or someone else? Patient reports no desire to harm self or others. Care prior to arrival: None. 10:09 Method Of Arrival: Ambulatory hb 10:09 Acuity: XAVIER 3 hb 10:15 Initial Sepsis Screen: Does the patient meet any 2 criteria? No. Patient's initial hb sepsis screen is negative. Does the patient have a suspected source of infection? No. Patient's initial sepsis screen is negative. Triage Assessment: 10:15 General: Appears in no apparent distress. uncomfortable, ill, Behavior is cooperative, hb crying. Pain: Pain currently is 7 out of 10 on a pain scale. EENT: No signs and/or symptoms were reported regarding the EENT system. Neuro: Level of Consciousness is awake, alert, obeys commands, Oriented to person, place, time, situation. Cardiovascular: Capillary refill < 3 seconds Patient's skin is warm and dry. Respiratory: Airway is patent Respiratory effort is even, unlabored, Respiratory pattern is regular, symmetrical, Breath sounds are clear bilaterally. GI: Abdomen is non-distended, Bowel sounds present X 4 quads. Abd is soft Abdomen is tender to palpation LUQ Reports cramping, diarrhea, nausea, vomiting. : No signs and/or symptoms were reported regarding the genitourinary system. Derm: Skin is pink, warm \T\ dry. Musculoskeletal: No signs and/or symptoms reported regarding the musculoskeletal system. Historical: - Allergies: 10:32 PENICILLINS; hb - Home Meds: 10:32 control pill [Active]; Seroquel Oral [Active]; Paxil Oral [Active]; hb - PMHx: 10:32 Depression; insomnia; hb - PSHx: 10:32 Appendectomy; hb - Immunization history:: Adult Immunizations up to date. - Social history:: Smoking status: Patient uses tobacco products, smokes one-half pack cigarettes per day. - Ebola Screening: : No symptoms or risks identified at this time. - Family history:: not pertinent. - Hospitalizations: : No recent hospitalization is reported. Screenin:16 Abuse screen: Denies threats or abuse. Denies injuries from another. Nutritional hb screening: No deficits noted. Tuberculosis screening: No symptoms or risk factors identified. Fall Risk None identified. Assessment: 10:16 General: see triage assessment. hb 11:10 Reassessment: Patient appears in no apparent distress at this time. Patient and/or hb family updated on plan of care and expected duration. Pain level reassessed. Patient is alert, oriented x 3, equal unlabored respirations, skin warm/dry/pink. 12:00 Reassessment: Patient appears in no apparent distress at this time. Patient and/or hb family updated on plan of care and expected duration. Pain level reassessed. Patient is alert, oriented x 3, equal unlabored respirations, skin warm/dry/pink. 13:01 Reassessment: Patient appears in no apparent distress at this time. Patient and/or hb family updated on plan of care and expected duration. Pain level reassessed. Patient is alert, oriented x 3, equal unlabored respirations, skin warm/dry/pink. 13:24 Reassessment: Discharge pending completion of IV ABX. hb Vital Signs: 10:08 BP 143 / 83; Pulse 88; Resp 16; Temp 97.8; Pulse Ox 97% on R/A; Pain 7/10; hb 11:00 BP 136 / 86; Pulse 88; Resp 15; Pulse Ox 100% on R/A; hb 12:15 BP 132 / 82; Pulse 84; Resp 16; Pulse Ox 100% on R/A; hb 13:00 BP 130 / 80; Pulse 80; Resp 14; Pulse Ox 99% on R/A; hb 14:00 BP 134 / 84; Pulse 82; Resp 15; Pulse Ox 100% on R/A; hb ED Course: 09:37 Patient arrived in ED. as 10:01 Felix Causey MD is Attending Physician. rn 10:08 Lexus Villarreal RN is Primary Nurse. hb 10:09 Triage completed. hb 10:09 Arm band placed on. hb 10:15 Radiology exam delayed due to lab results not completed at this time. (BUN/Creatinine) test not completed at this time. 10:16 Patient has correct armband on for positive identification. Placed in gown. Bed in low hb position. Call light in reach. Side rails up X 1. 10:26 Initial lab(s) drawn, by me, sent to lab. Urine collected: clean catch specimen, clear. ms Inserted saline lock: 20 gauge in right antecubital area, using aseptic technique. Blood collected. 11:36 CT completed. Patient tolerated procedure well. Patient moved to CT via wheelchair. sw Patient moved back from CT. 11:37 CT Abd/Pelvis - IV Contrast Only In Process Unspecified. EDMS 13:16 Elmer Li MD is Referral Physician. rn 14:15 No provider procedures requiring assistance completed. IV discontinued, intact, hb bleeding controlled, No redness/swelling at site. Pressure dressing applied. Administered Medications: 10:32 Drug: Demerol 25 mg Route: IVP; Site: right antecubital; hb 11:30 Follow up: Response: No adverse reaction; Pain is decreased hb 10:33 Drug: NS 0.9% 1000 ml Route: IV; Rate: 1000 ml; Site: right antecubital; hb 11:30 Follow up: Response: No adverse reaction; IV Status: Completed infusion; IV Intake: hb 1000ml 10:33 Drug: Zofran 4 mg Route: IVP; Site: right antecubital; hb 11:15 Follow up: Response: No adverse reaction hb 12:59 Drug: NS 0.9% 1000 ml Route: IV; Rate: 1000 ml; Site: right antecubital; hb 14:16 Follow up: Response: No adverse reaction; IV Status: Completed infusion; IV Intake: hb 1000ml 12:59 Drug: LevaQUIN 500 mg Volume: 100 ml; Route: IVPB; Infused Over: 60 mins; Site: right hb antecubital; 14:16 Follow up: Response: No adverse reaction; IV Status: Completed infusion; IV Intake: hb 100ml 12:59 Drug: Flagyl 500 mg Volume: 100 ml; Route: IVPB; Rate: 200 ml/hr; Infused Over: 30 hb mins; Site: right antecubital; 13:45 Follow up: Response: No adverse reaction; IV Status: Completed infusion; IV Intake: hb 100ml Intake: 11:30 IV: 1000ml; Total: 1000ml. hb 13:45 IV: 100ml; Total: 1100ml. hb 14:16 IV: 100ml; Total: 1200ml. hb 14:16 IV: 1000ml; Total: 2200ml. hb Outcome: 13:16 Discharge ordered by . rn 14:18 Discharged to home ambulatory. hb 14:18 Condition: stable 14:18 Discharge instructions given to patient, Instructed on discharge instructions, follow up and referral plans. medication usage, Demonstrated understanding of instructions, follow-up care, medications, Prescriptions given X 4. 14:19 Patient left the ED. hb Signatures: Dispatcher [employer] Latasha Hale Maria ms Nieto, Roman, MD MD rn Warren, Shannon sw Baxter, Heather, RN RN hb
--- NOTE | 2019-05-08 13:18 | EDPHYS ---
Physician Documentation [facility] Name: Dalila Jackson Age: 34 yrs Sex: Female : 1985 Arrival Date: 05/08/2019 Time: 09:37 Bed 7 Private MD: ED Physician Felix Causey HPI: 05/08 12:41 This 34 yrs old Female presents to ER via Ambulatory with complaints of rn Vomiting, Abdominal Cramping. 12:41 The patient presents to the emergency department with nausea, vomiting, diarrhea, rn abdominal pain. 12:41 Onset: The symptoms/episode began/occurred this morning. Possible causes: unknown. The rn symptoms are aggravated by nothing. The symptoms are alleviated by nothing. Severity of symptoms: At their worst the symptoms were moderate in the emergency department the symptoms are unchanged. The patient has experienced similar episodes in the past. Reports similar presentation in past, no known IBD, + small amount of blood in diarrhea, + vomiting, no fever, no famhx of IBD. + diffuse abd cramping that is getting worse. No hematemesis.. Historical: - Allergies: 10:32 PENICILLINS; hb - Home Meds: 10:32 control pill [Active]; Seroquel Oral [Active]; Paxil Oral [Active]; hb - PMHx: 10:32 Depression; insomnia; hb - PSHx: 10:32 Appendectomy; hb - Immunization history:: Adult Immunizations up to date. - Social history:: Smoking status: Patient uses tobacco products, smokes one-half pack cigarettes per day. - Ebola Screening: : No symptoms or risks identified at this time. - Family history:: not pertinent. - Hospitalizations: : No recent hospitalization is reported. ROS: 12:41 Constitutional: Negative for fever, chills, and weight loss, Eyes: Negative for injury, rn pain, redness, and discharge, Neck: Negative for injury, pain, and swelling, Cardiovascular: Negative for chest pain, palpitations, and edema, Respiratory: Negative for shortness of breath, cough, wheezing, and pleuritic chest pain, Abdomen/GI: + abd pain with nausea/vomiting/diarrhea MS/Extremity: Negative for injury and deformity, Skin: Negative for injury, rash, and discoloration, Neuro: Negative for headache, weakness, numbness, tingling, and seizure. Exam: 12:41 Constitutional: This is a well developed, well nourished patient who is awake, alert, rn appears uncomfortable, sitting upright Eyes: Pupils equal round and reactive to light, extra-ocular motions intact. Lids and lashes normal. Conjunctiva and sclera are non-icteric and not injected. Cornea within normal limits. Periorbital areas with no swelling, redness, or edema. ENT: dry MM Cardiovascular: Regular rate and rhythm. No pulse deficits. Respiratory: No increased work of breathing, no retractions or nasal flaring. Abdomen/GI: soft, + tender in all 4 quadrants MS/ Extremity: Pulses equal, no cyanosis. Neurovascular intact. Full, normal range of motion. Equal circumference. Neuro: Awake and alert, GCS 15, oriented to person, place, time, and situation. Vital Signs: 10:08 BP 143 / 83; Pulse 88; Resp 16; Temp 97.8; Pulse Ox 97% on R/A; Pain 7/10; hb 11:00 BP 136 / 86; Pulse 88; Resp 15; Pulse Ox 100% on R/A; hb 12:15 BP 132 / 82; Pulse 84; Resp 16; Pulse Ox 100% on R/A; hb 13:00 BP 130 / 80; Pulse 80; Resp 14; Pulse Ox 99% on R/A; hb 14:00 BP 134 / 84; Pulse 82; Resp 15; Pulse Ox 100% on R/A; hb MDM: 10:01 Patient medically screened. rn 13:14 Differential diagnosis: Nonspecific abd pain, appendicitis, diverticulitis, viral rn gastroenteritis, gastroenteritis, colitis, enteritis. Data reviewed: vital signs, nurses notes, lab test result(s), radiologic studies, CT scan, and as a result, I will discharge patient. Counseling: I had a detailed discussion with the patient and/or guardian regarding: the historical points, exam findings, and any diagnostic results supporting the discharge/admit diagnosis, lab results, radiology results, the need for outpatient follow up, to return to the emergency department if symptoms worsen or persist or if there are any questions or concerns that arise at home. Response to treatment: the patient's symptoms have markedly improved after treatment, patient is well hydrated. and as a result, I will discharge patient. Special discussion: Based on the patient's Hx, exam, and Dx evaluation, there is no indication for emergent surgery or inpatient Tx. It is understood by the patient/guardian that if the Sx's persist or worsen they need to return immediately for re-evaluation. I discussed with the patient/guardian in detail that at this point there is no indication for admission to the hospital. It is understood, however, that if the symptoms persist or worsen the patient needs to return immediately for re-evaluation. ED course: CT no acute findings, given elevated WBC and some blood in stool, culture sent, abx given, will treat as possible infectious diarrhea, return precautions given and understood, will treat given multiple recent shigella cases in area. Recommend GI f/u when feels better to rule out IBD.. 05/08 10:11 Order name: Basic Metabolic Panel; Complete Time: 12:15 rn 05/08 10:11 Order name: CBC with Diff 05/08 10:11 Order name: Creatinine for Radiology; Complete Time: 12:15 rn 05/08 10:11 Order name: Hepatic Function; Complete Time: 12:15 05/08 10:11 Order name: Lipase; Complete Time: 12:15 rn 05/08 10:11 Order name: Urine Microscopic Only; Complete Time: 12:15 rn 05/08 10:11 Order name: CT Abd/Pelvis - IV Contrast Only; Complete Time: 12:15 05/08 11:16 Order name: Urine Dipstick--Ancillary (enter results) 05/08 11:16 Order name: Urine --Ancillary (enter results) 05/08 11:38 Order name: Urine Culture [facility] 05/08 12:49 Order name: Manual Differential [facility] 05/08 13:14 Order name: Stool Culture 05/08 10:11 Order name: IV Saline Lock; Complete Time: 10:27 rn 05/08 10:11 Order name: Labs collected and sent; Complete Time: 10:27 rn 05/08 10:11 Order name: Urine Test (obtain specimen); Complete Time: 10:27 rn 05/08 10:11 Order name: Urine Dipstick-Ancillary (obtain specimen); Complete Time: 10:27 rn Administered Medications: 10:32 Drug: Demerol 25 mg Route: IVP; Site: right antecubital; hb 11:30 Follow up: Response: No adverse reaction; Pain is decreased hb 10:33 Drug: NS 0.9% 1000 ml Route: IV; Rate: 1000 ml; Site: right antecubital; hb 11:30 Follow up: Response: No adverse reaction; IV Status: Completed infusion; IV Intake: hb 1000ml 10:33 Drug: Zofran 4 mg Route: IVP; Site: right antecubital; hb 11:15 Follow up: Response: No adverse reaction hb 12:59 Drug: NS 0.9% 1000 ml Route: IV; Rate: 1000 ml; Site: right antecubital; hb 14:16 Follow up: Response: No adverse reaction; IV Status: Completed infusion; IV Intake: hb 1000ml 12:59 Drug: LevaQUIN 500 mg Volume: 100 ml; Route: IVPB; Infused Over: 60 mins; Site: right hb antecubital; 14:16 Follow up: Response: No adverse reaction; IV Status: Completed infusion; IV Intake: hb 100ml 12:59 Drug: Flagyl 500 mg Volume: 100 ml; Route: IVPB; Rate: 200 ml/hr; Infused Over: 30 hb mins; Site: right antecubital; 13:45 Follow up: Response: No adverse reaction; IV Status: Completed infusion; IV Intake: hb 100ml Disposition: 19 13:16 Discharged to Home. Impression: Diarrhea, unspecified, Dehydration, Generalized abdominal pain. - Condition is Stable. - Discharge Instructions: Dehydration, Adult, Diarrhea, Adult. - Prescriptions for Zofran ODT 4 mg Oral tablet,disintegrating - place 1 tablet by TRANSLINGUAL route every 8 hours As needed; 20 tablet. Flagyl 500 mg Oral Tablet - take 1 tablet by ORAL route every 8 hours for 10 days; 30 tablet. Levaquin 500 mg Oral Tablet - take 1 tablet by ORAL route once daily for 10 days; 10 tablet. Tylenol- Codeine #3 300-30 mg Oral Tablet - take 1 tablet by ORAL route every 6 hours As needed; 20 tablet. - Medication Reconciliation Form, Thank You Letter, Antibiotic Education, Prescription Opioid Use form. - Follow up: Elmer Li MD; When: As needed; Reason: Recheck today's complaints, Re-evaluation by your physician. - Problem is new. - Symptoms have improved. Signatures: Dispatcher [employer] EDMS Causey, Felix, MD MD rn Villarreal, Lexus, RN RN hb Corrections: (The following items were deleted from the chart) 14:19 13:16 05/08/2019 13:16 Discharged to Home. Impression: Diarrhea, unspecified; hb Dehydration; Generalized abdominal pain. Condition is Stable. Forms are Medication Reconciliation Form, Thank You Letter, Antibiotic Education, Prescription Opioid Use. Follow up: Elmer Li; When: As needed; Reason: Recheck today's complaints, Re-evaluation by your physician. Problem is new. Symptoms have improved. rn
[2019-05-08 13:56] LABS: Urine Blood 1+ (NEG); Urine Glucose NEGATIVE (NEG); Urine Protein 1+ (NEG); Urine Specific Gravity >1.030 (1.005-1.030); Urine pH 5.5 (5.0-7.0)
[2019-05-08 14:35] VITALS: BP 134/84; O2SAT 100
[2019-05-08 14:42] VITALS: TEMP 97.9
== END 2019-05-08 14:19 | disposition home or self-care (01) ==
LOC: ER 09:35
DX: R19.7 Diarrhea, unspecified (principal); E86.0 Dehydration; R10.84 Generalized abdominal pain; Z88.0 Allergy status to penicillin; F32.9 Major depressive disorder, single episode, unspecified
CPT/HCPCS: 36415; 74177; 80048; 80076; 81003; 81015; 81025; 83690; 85025; 87045; 87046; 87086; 87088; 96361; 96365; 96368; 96375; 99284; J2175; J2405; J7030; Q9967

== ENCOUNTER 2021-12-08 08:51 | Emergency (ER) | payer SELFPAY ==
[2021-12-08 10:00] LABS: Urine Blood Negative (Negative); Urine Glucose Negative (Negative); Urine Protein Negative (Negative); Urine Specific Gravity >=1.030 (1.005-1.030)
[2021-12-08] MEDS ORDERED: MORPHINE 4 MG/ML SYR ONE (10:13)
[2021-12-08] MEDS ORDERED: ONDANSETRON 4 MG/2 ML VIAL ONE (10:13)
--- NOTE | 2021-12-08 10:37 | RAD REPORT ---
EXAM DESCRIPTION: CTAbdomen Pelvis W Contrast - 12/08/2021 10:26 am CLINICAL HISTORY: Abdominal pain. lower abdominal pain COMPARISON: Abdomen Pelvis W Contrast dated 05/25/2021; Abdomen Pelvis W Contrast dated 9; Abdomen Pelvis W Contrast dated 05/04/2018; Abdomen Pelvis W Contrast dated 04/21/2018 TECHNIQUE: Biphasic CT imaging of the abdomen and pelvis was performed with 100 ml non-ionic IV cont rast. All CT scans are performed using dose optimization technique as appropriate and may include automated exposure control or mA/KV adjustment according to patient size. FINDINGS: The lung bases are clear. The liver, spleen, pancreas, adrenal glands and kidneys are within normal limits. No bowel obstruction, free air, free fluid or abscess. Trace pelvic free fluid. The appendix is not i dentified as a discrete structure, however, no secondary findings of appendicitis are identified. N o evidence of significant lymphadenopathy. No suspicious bony findings. IMPRESSION: No acute intra-abdominal or pelvic finding.
[2021-12-08 11:07] LABS: Absolute Lymphocytes (CBC) 1.8 K/uL (0.7-4.9); Hematocrit 47.3 % (36.0-45.0); Lymphocytes % 11.7 % (15.3-44.8); MCV 91.5 fL (80-100); MPV 9.2 fL (7.6-11.3); RBC Red Blood Cell Count 5.16 M/uL (3.86-4.86)
[2021-12-08 11:22] LABS: Albumin 3.8 g/dL (3.4-5.0); Bilirubin Total 0.3 mg/dL (0.2-1.0); Potassium 3.7 mmol/L (3.5-5.1); Protein, Total 6.7 g/dL (6.4-8.2)
--- NOTE | 2021-12-08 11:55 | EDPHYS ---
Physician Documentation [facility] Name: Dalila Jackson Age: 36 yrs Sex: Female : 1985 Arrival Date: 12/08/2021 Time: 08:53 Bed 12 Private MD: ED Physician Felix Causey HPI: 12/08 11:37 This 36 yrs old Female presents to ER via Ambulatory with complaints of Abdominal Pain. jmm 11:37 The patient presents with abdominal pain. Onset: The symptoms/episode began/occurred jmm gradually. The symptoms do not radiate. Associated signs and symptoms: Pertinent positives: nausea and vomiting, Pertinent negatives:. The symptoms are described as achy, sharp. Modifying factors: The symptoms are alleviated by nothing, the symptoms are aggravated by nothing. This is a 36 year old female with a history of depression, insomnia, that presents to the ED with complaints of generalized abdominal pain, vomiting beginning last night. Patient states having similar episodes in the past. No diagnosed underlying condition. . 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 - Social history:: Smoking status: Patient reports the use of cigarette tobacco products, smokes one-half pack cigarettes per day. ROS: 11:37 Constitutional: Negative for fever, chills, and weight loss, Cardiovascular: Negative jmm for chest pain, palpitations, and edema, Respiratory: Negative for shortness of breath, cough, wheezing, and pleuritic chest pain. 11:37 Abdomen/GI: Positive for abdominal pain. 11:37 All other systems are negative. Exam: 11:37 Head/Face: atraumatic. Eyes: EOMI, no conjunctival erythema appreciated ENT: Moist jmm Mucus Membranes Neck: Trachea midline, Supple Chest/axilla: Normal chest wall appearance and motion. Cardiovascular: Regular rate and rhythm. No edema appreciated Respiratory: Normal respirations, no respiratory distress appreciated 11:37 Skin: General appearance color normal MS/ Extremity: Moves all extremities, no obvious deformities appreciated, no edema noted to the lower extremities Neuro: Awake and alert Psych: Behavior is normal, Mood is normal, Patient is cooperative and pleasant 11:37 Constitutional: The patient appears alert, awake, uncomfortable. 11:37 Abdomen/GI: Inspection: abdomen appears normal, Bowel sounds: normal, Palpation: soft, mild abdominal tenderness, in all quadrants. Vital Signs: 09:19 BP 138 / 83; Pulse 93; Resp 19; Temp 98.8; Pulse Ox 100% ; Weight 68.04 kg; Height 5 ap3 ft. 5 in. (165.10 cm); Pain 7/10; 09:19 Body Mass Index 24.96 (68.04 kg, 165.10 cm) ap3 MDM: 09:31 Patient medically screened. [facility] 11:51 Data reviewed: vital signs, nurses notes. Counseling: I had a detailed discussion with cierra the patient and/or guardian regarding: the historical points, exam findings, and any diagnostic results supporting the discharge/admit diagnosis, lab results, radiology results, the need for outpatient follow up, to return to the emergency department if symptoms worsen or persist or if there are any questions or concerns that arise at home. 11:53 ED course: Patient states feeling much better. Advised to follow up with pcp and jmm otherwise given strict return precautions. Patient understood and agrees with the plan of care. . 12/08 09:31 Order name: CBC with Diff; Complete Time: 11:[address] [facility] 12/08 09:31 Order name: CMP; Complete Time: 11:[address] [facility] 12/08 09:31 Order name: Lipase; Complete Time: 11:[address] [facility] 12/08 09:50 Order name: CT Abd/Pelvis - IV Contrast Only; Complete Time: 10:[address] [facility] 12/08 10:00 Order name: Urine Dipstick-Ancillary; Complete Time: 10:01 [facility] 12/08 09:31 Order name: IV Saline Lock; Complete Time: 10:[address] [facility] 12/08 09:31 Order name: Labs collected and sent; Complete Time: 10:[address] [facility] 12/08 09:31 Order name: Urine Dipstick-Ancillary (obtain specimen); Complete Time: 09:[address] [facility] 12/08 09:31 Order name: Urine Test (obtain specimen); Complete Time: 09:[address] [facility] Administered Medications: 10:10 Drug: morphine 4 mg Route: IVP; Infused Over: 4 mins; Site: right antecubital; ap3 12:25 Follow up: Response: No adverse reaction; Pain is decreased ss 10:10 Drug: Zofran (Ondansetron) 4 mg Route: IVP; Site: right antecubital; ap3 12:03 Follow up: Response: No adverse reaction; Marked relief of symptoms ss 12:25 Drug: Bentyl (dicyclomine) 20 mg Route: PO; ss 12:25 Follow up: Response: No adverse reaction; Medication administered at discharge. ss Disposition: 18:24 Co-signature as Attending Physician, Felix Causey MD. rn Disposition Summary: 12/08/21 11:54 Discharge Ordered Location: Home [facility] Condition: Stable jmm Diagnosis - Abdominal pain, unspecified jmm - Vomiting jmm - Diarrhea, unspecified jmm Followup: [facility] - With: Private Physician - When: 2 - 3 days - Reason: Recheck today's complaints, Continuance of care, Re-evaluation by your physician Discharge Instructions: - Discharge Summary Sheet jm - Abdominal Pain, Adult jm - Food Choices to Help Relieve Diarrhea, Adult [facility] Forms: - Medication Reconciliation Form [facility] - Thank You Letter [facility] - Antibiotic Education [facility] - Prescription Opioid Use [facility] Prescriptions: - dicyclomine 20 mg Oral Tablet - take 1 tablet by ORAL route 4 times per day; 40 tablet; Refills: 0, Product [facility] Selection Permitted - ondansetron 4 mg Oral tablet,disintegrating - take 1 tablet by ORAL route every 4-6 hours; 30 tablet; Refills: 0, Product [facility] Selection Permitted Signatures: Dispatcher [employer] EDAzam Shah PA PA [facility] Felix Causey MD MD rn Smirch, Shelby, RN RN Katelynn Riojas RN RN ap3
--- NOTE | 2021-12-08 11:55 | ER ---
Nurse's Notes [facility] Name: Dalila Jackson Age: 36 yrs Sex: Female : 1985 Arrival Date: 12/08/2021 Time: 08:53 Bed 12 Private MD: Diagnosis: Abdominal pain, unspecified;Vomiting;Diarrhea, unspecified Presentation: 12/08 09:19 Chief complaint: Patient states: that she woke up with central abdominal pain. patient ap3 reports this occurs every few months, however this is more severe than normal. patient also states she has been experiencing n/v/d with her abdominal pain as well. Coronavirus screen: At this time, the client does not indicate any symptoms associated with coronavirus-19. Ebola Screen: No symptoms or risks identified at this time. Initial Sepsis Screen: Does the patient meet any 2 criteria? Yes Does the patient have a suspected source of infection? No. Patient's initial sepsis screen is negative. Risk Assessment: Do you want to hurt yourself or someone else? Patient reports no desire to harm self or others. Onset of symptoms was December 08, 2021. 09:19 Method Of Arrival: Ambulatory ap3 09:19 Acuity: XAVIER 3 ap3 Triage Assessment: 09:21 General: Appears distressed, uncomfortable, Behavior is crying. Pain: Complains of pain ap3 in abdomen Pain currently is 7 out of 10 on a pain scale. Pain began gradually, 4 hours ago. Neuro: Level of Consciousness is awake, alert, obeys commands, Oriented to person, place, time, situation, Appropriate for age Gait is steady, Speech is normal. Cardiovascular: Patient's skin is warm and dry. Respiratory: Airway is patent Respiratory effort is even, unlabored. GI: Reports lower abdominal pain, upper abdominal pain, cramping, diarrhea, nausea, vomiting. 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 - Social history:: Smoking status: Patient reports the use of cigarette tobacco products, smokes one-half pack cigarettes per day. Screenin:22 Abuse screen: Denies threats or abuse. Nutritional screening: No deficits noted. ap3 Tuberculosis screening: No symptoms or risk factors identified. Assessment: 10:11 General: Appears in no apparent distress. Behavior is tearful. Pt states, "I'm sorry ss I'm crying. I just want to know what's going on." . Pain: Complains of pain in suprapubic area Pain currently is 4 out of 10 on a pain scale. Quality of pain is described as crampy, Pain began Pt reports that the pain started around thanksgiving 4 years ago and occurs every few months since then. Is continuous. Neuro: Horton Agitation-Sedation Scale (RASS): 0 - Alert and Calm. Cardiovascular: Capillary refill < 3 seconds is brisk in bilateral fingers. Respiratory: Airway is patent Respiratory effort is even, unlabored, Respiratory pattern is regular, symmetrical. GI: Bowel sounds present X 4 quads. Abd is soft and non tender X 4 quads. Patient currently denies diarrhea, nausea, vomiting. EENT: Oral mucosa is moist. Derm: Skin is intact, is healthy with good turgor, Skin is pink, warm \\T\\ dry. normal. Musculoskeletal: Circulation, motion, and sensation intact. Range of motion: intact in all extremities, Swelling absent. 10:24 Reassessment: Pt to CT at this time. ss 11:23 Reassessment: Patient appears in no apparent distress at this time. Patient and/or ss family updated on plan of care and expected duration. Pain level reassessed. Patient is alert, oriented x 3, equal unlabored respirations, skin warm/dry/pink. All test results back at this time. Awaiting disposition. Vital Signs: 09:19 BP 138 / 83; Pulse 93; Resp 19; Temp 98.8; Pulse Ox 100% ; Weight 68.04 kg; Height 5 ap3 ft. 5 in. (165.10 cm); Pain 7/10; 09:19 Body Mass Index 24.96 (68.04 kg, 165.10 cm) ap3 ED Course: 08:53 Patient arrived in ED. mr 09:21 Triage completed. ap3 09:22 Arm band placed on right wrist. ap3 09:28 Azam Srivastava PA is PHCP. [facility] 09:28 Felix Causey MD is Attending Physician. cierra 09:53 Renate Serna, RN is Primary Nurse. ss 10:08 Inserted saline lock: 20 gauge in right antecubital area, using aseptic technique. ss Blood collected. 10:11 Patient has correct armband on for positive identification. Bed in low position. Call ss light in reach. 10:28 CT Abd/Pelvis - IV Contrast Only In Process Unspecified. EDMS 12:25 No provider procedures requiring assistance completed. Patient did not have IV access ss during this emergency room visit. Administered Medications: 10:10 Drug: morphine 4 mg Route: IVP; Infused Over: 4 mins; Site: right antecubital; ap3 12:25 Follow up: Response: No adverse reaction; Pain is decreased ss 10:10 Drug: Zofran (Ondansetron) 4 mg Route: IVP; Site: right antecubital; ap3 12:03 Follow up: Response: No adverse reaction; Marked relief of symptoms ss 12:25 Drug: Bentyl (dicyclomine) 20 mg Route: PO; ss 12:25 Follow up: Response: No adverse reaction; Medication administered at discharge. ss Medication: 10:11 VIS not applicable for this client. ss Outcome: 11:54 Discharge ordered by . [facility] 12:25 Discharged to home ambulatory. ss 12:25 Condition: good 12:25 Discharge instructions given to patient, Instructed on discharge instructions, follow up and referral plans. medication usage, Demonstrated understanding of instructions, follow-up care, medications, Prescriptions given X 2. 12:26 Patient left the ED. ss Signatures: Dispatcher [employer] EDMS Azam Srivastava PA PA jmm ChrissBetsy Renate Serna, RN RN Katelynn Riojas RN RN ap3
[2021-12-08] MEDS ORDERED: DICYCLOMINE HCL 10 MG CAP ONE (12:26)
[2021-12-08 12:36] VITALS: BP 138/83; TEMP 98.8; O2SAT 100
== END 2021-12-08 12:26 | disposition home or self-care (01) ==
LOC: ER 08:51
DX: R10.84 Generalized abdominal pain (principal); R11.2 Nausea with vomiting, unspecified; R19.7 Diarrhea, unspecified; F17.210 Nicotine dependence, cigarettes, uncomplicated; Z88.0 Allergy status to penicillin
CPT/HCPCS: 36415; 74177; 80053; 81003; 82565; 83690; 85025; 96374; 96375; 99284; J2405; Q9967

== ENCOUNTER 2024-01-16 12:48 | Emergency (ER) | payer SELFPAY ==
[2024-01-16 13:49] LABS: Absolute Basophils 0.1 K/uL (0-0.5); Absolute Eosinophils 0.2 K/uL (0-0.5); Absolute Monocytes 0.8 K/uL (0.1-1.3); Absolute Neutrophil 5.3 K/uL (1.8-8.0); Basophils % 0.7 % (0-1.3); Eosinophils % 2.2 % (0-4.4); Hematocrit 40.6 % (36.0-45.0); Hemoglobin 13.3 g/dL (12.0-15.0); Lymphocytes % 23.7 % (15.3-44.8); MCH 31.3 pg (27.0-35.0); MCHC 32.9 g/dL (32.0-36.0); MCV 95.2 fL (80-100); MPV 8.6 fL (7.6-11.3); Monocytes % 9.3 % (3.3-12.3); Neutrophils % 64.1 % (41.7-73.7); Platelets 242 thou/uL (152-406); RBC Red Blood Cell Count 4.26 M/uL (3.86-4.86)
[2024-01-16 14:10] LABS: Anion Gap 8.5 mEq/L (5.0-15.0); BUN Blood Urea Nitrogen 9 mg/dL (7-18); Bicarbonate 25 mEq/L (21-32); Glomerular Filtration Rate 116 ml/min (=/>90); Glucose Level 90 mg/dL (74-106); Magnesium 1.9 mg/dL (1.6-2.4); Potassium 3.5 mEq/L (3.5-5.1); Sodium Level 140 mEq/L (136-145)
[2024-01-16 14:15] LABS: Troponin High Sensitivity < 3.0 pg/mL (<58.9)
--- NOTE | 2024-01-16 14:31 | RAD REPORT ---
EXAM DESCRIPTION: RAD - Chest Single View - 01/16/2024 2:10 pm CLINICAL HISTORY: CHEST PAIN COMPARISON: No comparisons FINDINGS: Lines: None. Lungs: No evidence of edema or pneumonia. Pleural: No significant pleural effusions or pneumothorax. Cardiac: The heart size is within normal limits. Mediastinum: Within normal limits. Bones: No acute fractures. Other: None IMPRESSION: No acute cardiopulmonary disease.
--- NOTE | 2024-01-16 14:34 | ER ---
Nurse's Notes [facility] Name: Dalila Jackson Age: 39 yrs Sex: Female : 1985 Arrival Date: 01/16/2024 Time: 12:48 Bed 7 Private MD: Diagnosis: Chest pain, unspecified;Panic disorder [episodic paroxysmal anxiety] without agoraphobia Presentation: 01/15 12:50 Chief complaint: Patient states: DIZZINESS, CHEST PAIN AND BILATERAL ARM NUMBNESS AND db WEAKNESS WITH SOB. STATES STARTED WHILE CUTTING HAIR . Coronavirus screen: Client denies travel out of the [place] in the last 14 days. At this time, the client does not indicate any symptoms associated with coronavirus-19. Ebola Screen: Patient negative for fever greater than or equal to 101.5 degrees Fahrenheit, and additional compatible Ebola Virus Disease symptoms Patient denies exposure to infectious person. Patient denies travel to an Ebola-affected area in the 21 days before illness onset. No symptoms or risks identified at this time. Initial Sepsis Screen: Does the patient meet any 2 criteria? No. Patient's initial sepsis screen is negative. Does the patient have a suspected source of infection? No. Patient's initial sepsis screen is negative. Risk Assessment: Do you want to hurt yourself or someone else? Patient reports no desire to harm self or others. Onset of symptoms was January 16, 2024. 12:50 Method Of Arrival: Ambulatory db 12:50 Acuity: XAVIER 2 db Triage Assessment: 12:55 General: Appears in no apparent distress. comfortable, Behavior is calm, cooperative. db Pain: Complains of pain in chest. Neuro: Level of Consciousness is awake, alert, obeys commands, Oriented to person, place, time, situation, Appropriate for age Speech is normal. Cardiovascular: Reports chest pain, shortness of breath, Capillary refill < 3 seconds Patient's skin is warm and dry. Respiratory: Airway is patent Respiratory effort is even, unlabored, Respiratory pattern is regular, symmetrical. 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 - Infectious Disease History:: Denies. - Social history:: Smoking status: Patient reports the use of cigarette tobacco products, smokes one-half pack cigarettes per day. Screenin:15 [facility] ED Fall Risk Assessment (Adult) History of falling in the last 3 months, mb9 including since admission No falls in past 3 months (0 pts) Confusion or Disorientation No (0 pts) Intoxicated or Sedated No (0 pts) Impaired Gait No (0 pts) Mobility Assist Device Used No (0 pt) Altered Elimination No (0 pt) Score/Fall Risk Level 0 - 2 = Low Risk Oriented to surroundings, Maintained a safe environment, Educated pt \T\ family on fall prevention, incl call for assistance when getting out of bed. Abuse screen: Denies threats or abuse. Nutritional screening: No deficits noted. Tuberculosis screening: No symptoms or risk factors identified. Assessment: 13:14 General: Appears uncomfortable, Behavior is anxious. Pain: Complains of pain in chest mb9 Pain does not radiate. Pain currently is 5 out of 10 on a pain scale. Quality of pain is described as pressure, Pain began suddenly, Is continuous. Neuro: Horton Agitation-Sedation Scale (RASS): 0 - Alert and Calm Level of Consciousness is awake, alert, obeys commands, Oriented to person, place, time, situation, Appropriate for age. Neuro: Reports dizziness. Cardiovascular: Reports chest pain, Heart tones S1 S2 present Patient's skin is warm and dry. Rhythm is regular. Cardiovascular: Reports. Respiratory: Reports shortness of breath Airway is patent Respiratory effort is even, unlabored, Respiratory pattern is regular, symmetrical. GI: Abdomen is flat, non-distended, Bowel sounds present X 4 quads. Abd is soft and non tender X 4 quads. : No signs and/or symptoms were reported regarding the genitourinary system. EENT: No signs and/or symptoms were reported regarding the EENT system. Derm: Skin is pink, warm \T\ dry. Musculoskeletal: Range of motion: intact in all extremities. 14:44 Reassessment: Patient appears in no apparent distress at this time. No changes from ld1 previously documented assessment. Patient and/or family updated on plan of care and expected duration. Pain level reassessed. Patient is alert, oriented x 3, equal unlabored respirations, skin warm/dry/pink. Vital Signs: 12:50 BP 144 / 91; Pulse 90; Resp 16; Temp 98.9(O); Pulse Ox 96% ; Weight 68.04 kg; Height 5 db ft. 5 in. ; 14:44 BP 139 / 76; Pulse 82; Resp 18; Pulse Ox 99% on R/A; ld1 12:50 Body Mass Index 24.96 (68.04 kg, 165.1 cm) db ED Course: 12:50 Patient arrived in ED. im 12:52 Betsy Garcia RN is Primary Nurse. mb9 12:54 Robert Bergman PA is PHCP. jr8 12:54 Vick Kline MD is Attending Physician. jr8 12:55 Arm band placed on Patient placed in an exam room. db 12:58 Triage completed. db 13:00 Initial lab(s) drawn, by me, sent to lab. EKG done, by ED staff, reviewed by Robert FORD. Inserted saline lock: 20 gauge in right antecubital area, using aseptic technique. Blood collected. Flushed with 10 mL NS. 13:16 Placed in gown. Bed in low position. Call light in reach. Side rails up X 1. Provided mb9 Education on: press call light if needing anything. Client placed on continuous cardiac and pulse oximetry monitoring. NIBP monitoring applied. gambling monitor on. 13:16 No provider procedures requiring assistance completed. mb9 14:12 XRAY Chest (1 view) In Process Unspecified. EDMS 14:44 IV discontinued, intact, bleeding controlled, No redness/swelling at site. ld1 Administered Medications: 13:12 Drug: ALPRAZolam PO Tablet 1 mg PO once Route: PO; mb9 14:19 Follow up: Response: No adverse reaction mb9 13:16 Drug: Aspirin PO Chewable Tablet 324 mg PO once; 81 mg tablets x 4 Route: PO; mb9 14:20 Follow up: Response: No adverse reaction mb9 Medication: 13:16 VIS not applicable for this client. mb9 Outcome: 14:34 Discharge ordered by . jr8 14:44 Discharged to home ambulatory, ld1 14:44 Condition: stable 14:44 Discharge instructions given to patient, Instructed on discharge instructions, follow up and referral plans. Demonstrated understanding of instructions, follow-up care, 14:45 Patient left the ED. ld1 Signatures: Dispatcher [employer] EDMS Robert Bergman, PA PA jr8 Marj Hobbs, RN RN ld1 Hyacinth Barros, RN RN db Radha, Betsy Flores, RN RN mb9 Sabine Pierre
--- NOTE | 2024-01-16 14:34 | EDPHYS ---
Physician Documentation [facility] Name: Dalila Jackson Age: 39 yrs Sex: Female : 1985 Arrival Date: 01/16/2024 Time: 12:48 Bed 7 Private MD: ED Physician Vick Kline HPI: 01/15 13:40 This 39 yrs old Female presents to ER via Ambulatory with complaints of Chest Pain, jr8 Numbness Of Arm, Dizziness. 13:40 The patient or guardian reports chest pain that is located primarily in the substernal jr8 area. The pain radiates to the left arm. Associated signs and symptoms: Pertinent positives: dizziness. The chest pain is described as squeezing. Duration: The patient or guardian reports a single episode, that is still ongoing, but improving. Modifying factors: The symptoms are alleviated by nothing. the symptoms are aggravated by nothing. Severity of pain: At its worst the pain was mild in the emergency department the pain is unchanged. The patient has experienced a previous episode. The patient has not recently seen a physician. Patient stated that while cutting here today started to have dizziness and then shortly after a squeezing chest tightness with tingling in the left and that her lips were tingling. Has had this 1 other time in the past and was told that it was from a bruised chest nontraumatic and from overuse. Past history of anxiety and panic attacks as well. . 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 - Infectious Disease History:: Denies. - Social history:: Smoking status: Patient reports the use of cigarette tobacco products, smokes one-half pack cigarettes per day. ROS: 13:40 Eyes: Negative for injury, pain, redness, and discharge, ENT: Negative for injury, jr8 pain, and discharge, Neck: Negative for injury, pain, and swelling, Respiratory: Negative for shortness of breath, cough, wheezing, and pleuritic chest pain, Abdomen/GI: Negative for abdominal pain, nausea, vomiting, diarrhea, and constipation, Back: Negative for injury and pain, MS/Extremity: Negative for injury and deformity, Skin: Negative for injury, rash, and discoloration, 13:40 Cardiovascular: Positive for chest pain, 13:40 Neuro: Positive for dizziness, tingling, Exam: 13:40 Constitutional: This is a well developed, well nourished patient who is awake, alert, jr8 and in no acute distress. Eyes: Pupils equal round and reactive to light, extra-ocular motions intact. Lids and lashes normal. Conjunctiva and sclera are non-icteric and not injected. Cornea within normal limits. Periorbital areas with no swelling, redness, or edema. ENT: Nares patent. No nasal discharge, no septal abnormalities noted. Tympanic membranes are normal and external auditory canals are clear. Oropharynx with no redness, swelling, or masses, exudates, or evidence of obstruction, uvula midline. Mucous membranes moist. Neck: Trachea midline, no thyromegaly or masses palpated, and no cervical lymphadenopathy. Supple, full range of motion without nuchal rigidity, or vertebral point tenderness. No Meningismus. Chest/axilla: Normal chest wall appearance and motion. Nontender with no deformity. No lesions are appreciated. Cardiovascular: Regular rate and rhythm with a normal S1 and S2. No gallops, murmurs, or rubs. Normal PMI, no JVD. No pulse deficits. Respiratory: Lungs have equal breath sounds bilaterally, clear to auscultation and percussion. No rales, rhonchi or wheezes noted. No increased work of breathing, no retractions or nasal flaring. Abdomen/GI: Soft, non-tender, with normal bowel sounds. No distension or tympany. No guarding or rebound. No evidence of tenderness throughout. Back: No spinal tenderness. No costovertebral tenderness. Full range of motion. Skin: Warm, dry with normal turgor. Normal color with no rashes, no lesions, and no evidence of cellulitis. MS/ Extremity: Pulses equal, no cyanosis. Neurovascular intact. Full, normal range of motion. Neuro: Awake and alert, GCS 15, oriented to person, place, time, and situation. Cranial nerves II-XII grossly intact. Motor strength 5/5 in all extremities. Sensory grossly intact. Cerebellar exam normal. Normal gait. 13:40 ECG was reviewed by the Attending Physician. [facility] Vital Signs: 12:50 BP 144 / 91; Pulse 90; Resp 16; Temp 98.9(O); Pulse Ox 96% ; Weight 68.04 kg; Height 5 db ft. 5 in. ; 14:44 BP 139 / 76; Pulse 82; Resp 18; Pulse Ox 99% on R/A; ld1 12:50 Body Mass Index 24.96 (68.04 kg, 165.1 cm) db MDM: 12:56 Patient medically screened. [facility] 14:32 Differential diagnosis: abnormal EKG, acute myocardial infarction, acute pericarditis, jr8 anxiety, chest wall pain, cholecystitis, Cholelithiasis costochondritis, gastritis, gastroesophageal reflux disease (GERD), pancreatitis, pulmonary embolus, thoracic aortic disection, unstable angina. JOVANNY Risk Score: 1 - Recent [<24hrs] Severe Angina, TOTAL SCORE = 1. Data reviewed: vital signs, nurses notes, lab test result(s), EKG, radiologic studies, plain films. Independent interpretation of the following test(s) in the Emergency Department EKG: See my EKG interpretation above X-Ray: My interpretation is No acute cardiopulmonary findings . Counseling: I had a detailed discussion with the patient and/or guardian regarding the historical points, exam findings, and any diagnostic results supporting the discharge/admit diagnosis, lab results, radiology results, the need for outpatient follow up, a sampler first, a family practitioner, to return to the emergency department if symptoms worsen or persist or if there are any questions or concerns that arise at home. Response to treatment: the patient's symptoms have resolved after treatment, the patient's pain is gone. 01/15 13:02 Order name: Basic Metabolic Panel; Complete Time: 14:01/15 13:02 Order name: CBC with Diff; Complete Time: 14:29 01/15 13:02 Order name: Magnesium; Complete Time: 14:29 01/15 13:02 Order name: Troponin HS; Complete Time: 14:29 01/15 13:02 Order name: XRAY Chest (1 view); Complete Time: 14:34 01/15 13:02 Order name: Cardiac monitoring; Complete Time: 13:12 01/15 13:02 Order name: EKG - Nurse/Tech; Complete Time: 13:12 01/15 13:02 Order name: IV Saline Lock; Complete Time: 13:12 /18 13:02 Order name: Labs collected and sent; Complete Time: 13:8 01/15 13:02 Order name: O2 Per Protocol; Complete Time: :8 01/15 13:02 Order name: O2 Sat Monitoring; Complete Time: : EC:40 Rate is 77 beats/min. Rhythm is regular, Normal Sinus Rhythm. QRS [place] is Normal. ND jr8 interval is normal. QRS interval is normal. QT interval is normal. No Q waves. T waves are Normal. No ST changes noted. Clinical impression: Normal ECG. Interpreted by me. Reviewed by me. Administered Medications: 13:12 Drug: ALPRAZolam PO Tablet 1 mg PO once Route: PO; mb9 14:19 Follow up: Response: No adverse reaction mb9 13:16 Drug: Aspirin PO Chewable Tablet 324 mg PO once; 81 mg tablets x 4 Route: PO; mb9 14:20 Follow up: Response: No adverse reaction mb9 Disposition Summary: 01/16/24 14:34 Discharge Ordered Notes: Location: Home jr8 Problem: new jr8 Symptoms: have improved jr8 Condition: Stable jr8 Diagnosis - Chest pain, unspecified jr8 - Panic disorder [episodic paroxysmal anxiety] without agoraphobia jr8 Followup: jr8 - With: Private Physician - When: 2 - 3 days - Reason: Recheck today's complaints, Continuance of care, Re-evaluation by your physician Discharge Instructions: - Discharge Summary Sheet jr8 - Panic Attack jr8 - Nonspecific Chest Pain, Adult jr8 Forms: - Medication Reconciliation Form jr8 - Antibiotic Education jr8 - Prescription Opioid Use jr8 - Patient Portal Instructions jr8 - Leadership Thank You Letter jr8 Signatures: Dispatcher [employer] EDMS Roebrt Bergman PA PA jr8 Hyacinth Barros RN RN Betsy Urias RN RN mb9 Corrections: (The following items were deleted from the chart) 13:02 13:02 BASIC METABOLIC PANEL+C.LAB.BRZ ordered. EDMS EDMS 13:02 13:02 CBC+H.LAB.BRZ ordered. EDMS EDMS 13:02 13:02 MAGNESIUM+C.LAB.BRZ ordered. EDMS EDMS 13:02 13:02 Troponin High Sensitivity+C.LAB.BRZ ordered. EDMS EDMS 13:02 13:02 Chest Single View+RAD.RAD.BRZ ordered. EDMS EDMS
[2024-01-16 15:11] VITALS: TEMP 98.9
[2024-01-16 15:12] VITALS: BP 139/76; O2SAT 99
--- NOTE | 2024-01-18 17:52 | EKG ---
Test Date: 2024-01-16 Test Time: 12:56:20 Art Appraiser: MB MEASUREMENT RESULTS: Intervals: Rate: 77 CA: 136 QRSD: 80 QT: 382 QTc: 432 [place]: P: 77 CA: 136 QRS: 90 T: 67 INTERPRETIVE STATEMENTS: Normal sinus rhythm Normal ECG No previous ECG available for comparison Electronically Signed On 01-18-24 17:47:44 CDT by Landon Stevenson
== END 2024-01-16 14:45 | disposition home or self-care (01) ==
LOC: ER 12:48
DX: F41.0 Panic disorder [episodic paroxysmal anxiety] (principal); F17.210 Nicotine dependence, cigarettes, uncomplicated
CPT/HCPCS: 36415; 71045; 80048; 83735; 84484; 85025; 93005; 99284